=== PATIENT | male | born 1985 | race Caucasian/White ===

== ENCOUNTER 2022-04-04 09:34 | Day surgery (SDC) | payer BC, SELFPAY ==
[2022-04-04] VITALS (15 sets, daily range): BP systolic 116–134; BP diastolic 82–99; PULSE 61–88; RESP 15–16; TEMP 36.5–36.8; O2SAT 98–100; BMI 24.8
[2022-04-04] MEDS: LACTATED RINGERS 1000 ML 1,000 ML 100 ML IV (10:00)
[2022-04-04] MEDS: SODIUM CHLORIDE 0.9 % (FLUSH) 10 ML SYRINGE IVF (10:00)
--- NOTE | 2022-04-04 11:11 | W.ANESCHARGE ---
Anesthesia Charges Start Date/Time Anesthesia Start Date: 04/04/22 Anesthesia Start Time: 10:27 Stop Date/Time Anesthesia Stop Date: 04/04/22 Anesthesia Stop Time: 11:10 Summary Emergency: No
[2022-04-04] MEDS: fentaNYL 100 MCG/2 ML inj 50 MCG IVP (11:36)
--- NOTE | 2022-04-04 11:52 | SUR.PHASEI ---
patient met anesthesia discharge criteria
--- NOTE | 2022-04-04 11:54 | W.ANESCHARGE ---
Anesthesia Charges Start Date/Time Anesthesia Start Date: 04/04/22 Anesthesia Start Time: 10:27 Stop Date/Time Anesthesia Stop Date: 04/04/22 Anesthesia Stop Time: 11:10 Summary Emergency: No
--- NOTE | 2022-04-04 12:16 | W.PM.ENTPROC ---
Procedure Note Date of procedure: 04/04/22 Post-op diagnosis: same Procedure: Preoperative diagnosis chronic tonsillitis Postoperative diagnosis same Procedure tonsillectomy Under general trach anesthesia patient was prepped and draped in usual fashion. The McIvor mouth gag was inserted the tongue retracted forward. The right tonsil was removed with a combination of needlepoint and Coblation cautery. The lower 3rd of the uvula was amputated to prevent swelling. The left tonsil was removed in identical fashion. The patient was extubated in the operating room taken recovery satisfactory condition. Blood loss was less than 20 mL there were no complications. Surgeon: Stuart Little MD
[2022-04-04] MEDS: OXYCODONE 1 MG/ML ORAL SOLN PO (12:21)
[2022-04-04] MEDS: IBUPROFEN 100 MG/5 ML SUSP 200 MG PO (12:23)
[2022-04-04] MEDS: ACETAMINOPHEN SUSPENSION 1 BOTTLE 320 MG PO (12:23)
== END 2022-04-04 13:30 | disposition home or self-care (01) ==
PROVIDERS: PCP Physician Assistant Medical; Visit Provider Otolaryngology
PROC: (CPT 42826; principal; 2022-04-04 10:45)
DX: J35.01 Chronic tonsillitis (principal)
CPT/HCPCS: 42826; 00170; 88304; A9270; J0330; J1100; J2250; J2405; J2704; J3010; J7120

== ENCOUNTER 2022-10-01 13:50 | Outpatient (CLI) | payer BC, SELFPAY | END 2022-10-01 13:51 | disposition home or self-care (01) | PROVIDERS: PCP Physician Assistant Medical; Visit Provider Family Medicine | DX: Z00.00 Encounter for general adult medical examination without abnormal findings (principal); E78.5 Hyperlipidemia, unspecified; G40.909 Epilepsy, unspecified, not intractable, without status epilepticus | CPT/HCPCS: 80053; 80061; 80185 ==

== ENCOUNTER 2023-10-27 10:59 | Outpatient (CLI) | payer BC, SELFPAY | END 2023-10-27 11:00 | disposition home or self-care (01) | PROVIDERS: PCP Physician Assistant Medical; Visit Provider Family Medicine | DX: E78.5 Hyperlipidemia, unspecified (principal); G40.909 Epilepsy, unspecified, not intractable, without status epilepticus; Z13.228 Encounter for screening for other metabolic disorders | CPT/HCPCS: 80053; 80061 ==

== ENCOUNTER 2024-04-08 08:46 | Outpatient (CLI) | payer BC, SELFPAY | END 2024-04-08 08:47 | disposition home or self-care (01) | LOC: NFLDREF 04-09 15:53 | PROVIDERS: PCP Family Medicine; Referring Provider Family Medicine; Visit Provider Family Medicine | DX: R10.13 Epigastric pain (principal); E78.2 Mixed hyperlipidemia | CPT/HCPCS: 80061; 80076 ==